=== PATIENT | male | born 1960 | race Caucasian/White ===

== ENCOUNTER 2017-05-16 12:27 | Inpatient (IN) | payer OTHER ==
[~2017-05-16] VITALS: Ht 175.3 cm; Wt 116.1 kg
[~2017-05-16 12:27] MED LIST: ACET325T96 PO; ASPI1TAB83 PO; ATOR-22 PO; B-COTAB18 PO; CHOL2000 PO; CRG625 PO; FBR PO; FLM4 PO; HYDC25 PO; LISI40TA PO; MISCCAP80 PO; MULT-506 PO; OXYC-57 PO; POTASSIUM PO; WARF2TAB8 PO
[2017-05-16] MEDS ORDERED: CARV6.252 PO (13:08)
[2017-05-16] MEDS ORDERED: LSN40 PO (13:08)
[2017-05-16] MEDS ORDERED: SULF400T7 PO (13:08)
[2017-05-16] MEDS ORDERED: ANS100 PO (13:08)
[2017-05-16] MEDS ORDERED: TAMS0.4C38 PO (13:08)
[2017-05-16] MEDS ORDERED: ATOR-54 PO (13:08)
[2017-05-16 13:11] LABS: MANUAL MICROSCOPIC REQUIRED? NO; REVIEW REQ? NO; URINE APPEARANCE CLEAR (CLEAR); URINE BILIRUBIN NEG (NEG); URINE COLOR YELLOW; URINE EPITHELIAL CELL AUTO 0-5 /lpf (0-5); URINE NITRITE NEG (NEG); URINE SPECIFIC GRAVITY 1.017 (1.000-1.030); UROBILINOGEN NEG (NEG); ZZUR CULT IF INDIC CLEAN CATCH NO
[2017-05-16] MEDS ORDERED: SODIUM CHLORIDE 0.9% 1000ML 1,000 ML IV STA (13:13)
[2017-05-16] MEDS ORDERED: ONDANSETRON INJ 2 MG/ML 2 ML VIAL IV STA (13:13)
[2017-05-16] MEDS ORDERED: MoRPHine SULFATE 10 MG/ML CARP/VIAL IV STA (13:13)
[2017-05-16 13:24] LABS: HEMATOCRIT 38.8 % (42-52); MEAN CELL VOLUME 87.4 fL (80-100); MEAN CORPUSCULAR HEMOGLOBIN 31.3 pg (25-34); MEAN CORPUSCULAR HGB CONC 35.8 g/dl (32-36); MEAN PLATELET VOLUME 9.8 fL (7.4-10.4); PLATELET COUNT 173 K/uL (130-400); RED BLOOD COUNT 4.44 M/uL (4.7-6.1); WHITE BLOOD COUNT 8.45 K/uL (4.8-10.8)
--- NOTE | 2017-05-16 13:30 | EMERGENCY ROOM VISIT NOTE ---
History First contact with patient: 13:02 Chief Complaint: URINARY SYMPTOMS Stated Complaint: PAIN, CANT PEE, CANT STOP PEEING Nursing Triage Summary: pt reports right flank pain started on may 06 went to pcp on may 10 told he has uti placed on antibiotic. pt having difficulty urinating, vomiting and nausea History of Present Illness The patient is a 57 year old male who presents to the Emergency Room with complaints of right flank and suprapubic pain with difficulty urinating that started approximately 10 days ago. Patient states he initially had very mild pain and was having urinary retention, he saw his PCP a week ago and was placed on Bactrim to treat for possible UTI. Patient states he has been taking this medication but has not really improved. He states his pain got much worse last night and today he has had some chills, nausea and vomiting. He also states at times that he feels increased urgency and does not always make it to the bathroom in time and has some incontinence. He has also noted some incontinence at night when he is sleeping. During the day he feels difficulty starting to urinate, and states "I have to push a lot before I start to pee." He also complains of a lot of bladder pressure. He does report a history of kidney stones in the past, he states this feels similar to him. He denies any headaches, itchiness or syncope, chest pain, shortness of breath, numbness or weakness of his extremities, saddle paresthesias, difficulties with his bowel movements, diarrhea or constipation, blood in the stool, hematuria. He denies any history of spine problems or surgeries. Review of Systems A complete 10 point review of systems was reviewed with the patient with pertinent positives and negatives as per history of present illness. All else were negative. Past Medical/Surgical History Medical Problems: (1) Dyslipidemia (2) HTN (hypertension) (3) Renal calculi Surgical Problems: (1) Status post total knee replacement, left (2) Status post total knee replacement, right Social History Problems: (1) Obstructive uropathy Family History No pertinent family history Social History Smoking Status: Never Smoker Marital Status: Housing Status: lives with significant other Current/Historical Medications Scheduled Atorvastatin (Lipitor), 1 TAB PO DAILY Carvedilol (Coreg), 1 TAB PO BID Hydrochlorothiazide (Hctz), 1 CAP PO DAILY Lisinopril (Lisinopril), 40 MG PO DAILY Sulfamethoxazole-Trimethoprim (Bactrim 400MG/80MG), 1 TAB PO BID Tamsulosin Hcl (Flomax), 0.4 MG PO DAILY Scheduled PRN Flurbiprofen (Flurbiprofen), 100 MG PO BID PRN for Pain Allergies No known allergies no known allergies Physical Exam Vital Signs Date Time Temp Pulse Resp B/P (MAP) Pulse Ox O2 Delivery O2 Flow Rate FiO2 05/16/17 15:15 69 05/16/17 15:08 70 159/72 Room Air 05/16/17 14:03 82 22 192/116 99 05/16/17 13:50 193/129 05/16/17 13:41 169/106 05/16/17 12:32 36.6 75 18 200/125 97 Room Air Physical Exam CONSTITUTIONAL: No acute distress. Well appearing and well nourished. Alert and oriented X 4 with normal affect. HEENT: Normocephalic, atraumatic. Pupils equal, round and reactive to light, EOMI. TMs normal. Pharynx normal. NECK: Supple, full active range of motion without discomfort. RESPIRATORY: Clear to auscultation bilaterally with no wheezing, crackles, rhonchi or stridor. Equal expansion bilaterally. CARDIOVASCULAR: Regular rate and rhythm with no murmurs, rubs or gallops. Normal peripheral perfusion. No edema. GASTROINTESTINAL: Tender in the suprapubic and right flank. No rebound tenderness or guarding. No palpable masses or HSM. No CVA tenderness. Abdomen is otherwise soft, nontender, nondistended. Bowel sounds present in all quadrants. MUSCULOSKELETAL: Full range of motion of all joints without discomfort. INTEGUMENTARY: No rash or other significant dermatologic conditions noted. NEUROLOGIC: Cranial nerves II-XII grossly intact. No focal neurologic deficits noted. Normal strength and sensation in all 4 extremities, normal gait observed , normal speech, 2+ DTRs bilaterally patellar and Achilles. Medical Decision & Procedures ER Provider Diagnostic Interpretation: CT OF THE ABDOMEN AND PELVIS WITHOUT CONTRAST CLINICAL HISTORY: Right flank pain. Bladder pressure. Evaluate for stone. COMPARISON STUDY: CT of the abdomen and pelvis December 06, 2010 and KUB April 20, 2011. TECHNIQUE: Axial images of the abdomen and pelvis were obtained without IV contrast. Images were reviewed in the axial, sagittal, and coronal planes. A dose lowering technique was utilized adhering to the principles of ALA. FINDINGS: There is mild bilateral hydroureteronephrosis with mild bilateral perinephric and periureteral ureteral infiltration as well as mild infiltration adjacent to the bladder. The bladder is moderately distended despite an indwelling Copeland catheter. The prostate is moderately enlarged. There are multiple apparent nodular plaque-like abnormalities along the dome of the bladder that measure approximately 1.4 cm. No calcified bladder calculi are present. There are no urinary calculi Evaluation of the remainder of the abdomen and pelvis is suboptimal on this unenhanced exam. The liver, spleen, adrenal glands and pancreas are unremarkable. There is no biliary or pancreatic ductal dilatation. There is extensive colonic diverticulosis without evidence for acute diverticulitis. Mild infiltration within the pelvis is likely related to the urinary obstruction. The appendix is normal. There is no lymphadenopathy. There are no suspicious osseous lesions. There is no pneumatosis, free air or portal venous gas. IMPRESSION: 1. Mild to moderate bilateral hydroureteronephrosis, potentially on the basis of bladder outlet obstruction. Moderate distention of the bladder despite Copeland catheter in place within the bladder lumen. No urinary calculi. Moderate enlargement of the prostate gland. 2. Multiple nodular plaque-like abnormalities along the dome of the bladder. These are indeterminate however urothelial lesions are favored. Blood clot or noncalcified stones are considered less likely. Urology consultation for consideration for cystoscopy is recommended given the potential for malignancy. Laboratory Results 05/16/17 12:49 Test 05/16/17 12:49 Red Blood Count 4.44 M/uL (4.7-6.1) Mean Corpuscular Volume 87.4 fL (80-100) Mean Corpuscular Hemoglobin 31.3 pg (25-34) Mean Corpuscular Hemoglobin Concent 35.8 g/dl (32-36) RDW Standard Deviation 40.8 fL (36.4-46.3) RDW Coefficient of Variation 12.6 % (11.5-14.5) Mean Platelet Volume 9.8 fL (7.4-10.4) Prothrombin Time 10.7 SECONDS (9.0-12.0) Prothromb Time International Ratio 1.0 (0.9-1.1) Urine WBC (Auto) 1-5 /hpf (0-5) Urine RBC (Auto) 0-4 /hpf (0-4) Urine Hyaline Casts (Auto) 1-5 /lpf (0-5) Urine Epithelial Cells (Auto) 0-5 /lpf (0-5) Urine Bacteria (Auto) NEG (NEG) Medications Administered Medications (Trade) Dose Ordered Sig/Sana Route Start Time Stop Time Status Last Admin Dose Admin Sodium Chloride 1,000 ml @ 999 mls/hr Q1H1M STAT IV 05/16/17 13:13 05/16/17 14:13 DC 05/16/17 13:59 999 MLS/HR Ondansetron HCl (Zofran Inj) 4 mg NOW STAT IV 05/16/17 13:13 05/16/17 13:15 DC 05/16/17 13:59 4 MG Morphine Sulfate (MoRPHine SULFATE INJ) 2 mg STK-MED ONCE .ROUTE 05/16/17 13:55 05/16/17 13:56 DC 05/16/17 14:00 2 MG Morphine Sulfate (MoRPHine SULFATE INJ) 4 mg STK-MED ONCE .ROUTE 05/16/17 13:55 05/16/17 13:56 DC 05/16/17 13:59 4 MG Medical Decision CC: Patient presenting with complaint of suprapubic pain and low back/flank pain Interpretation of Labs: No leukocytosis, mild anemia, no significant electrolyte abnormalities, acute kidney injury (appears to be post renal, renal function has been normal on comparison of previous labs). Coagulation factors within normal limits. UA negative for infection. Differential Diagnosis: Includes, but not limited to UTI, pyelonephritis, renal colic, obstructing stone, acute kidney injury, urinary retention, AAA, aortic dissection, cauda equina syndrome, among others. Medication Reconciliation: I attest that I have personally reviewed the patient' s current medication list. Vital signs review: I reviewed the patient's vital signs and interpret them as follows: T: Afebrile; BP: Hypertensive; HR: Within normal limits; RR: Within normal limits; Pulse Ox: Within normal limits on room air. Blood pressure screening: The patient was found to have an elevated blood pressure and was referred to their primary doctor for recheck and further treatment. Summary: Patient was evaluated at bedside, history and physical exam performed. Patient alert and oriented, no acute distress but appears uncomfortable, resting calmly in the stretcher. Patient has discomfort in the suprapubic area and of the right flank. No significant tenderness noted to the abdomen. Bladder scan showing more than 1100 mL in the bladder. Copeland catheter was ordered. Orders were placed at bedside for labs, UA and culture, IV fluids, morphine for pain, CT abdomen and pelvis without contrast to evaluate for obstructing stone. Patient discussed with Dr. Geiger, who agrees with my assessment and plan. Labs reviewed as above, notable for acute kidney injury when compared to previous renal function. CT abdomen/pelvis concerning for bilateral moderate hydronephrosis and distention of the bladder as well as lesions within the bladder concerning for possible malignancy. Spoke with KERI Crowley with the hospitalist service, who agrees to admit patient. She will consult urology for their assistance in management. Patient reassessed multiple times throughout ED stay, he feels much better after placement of Copeland. Per nursing staff, he has drained over 2800 mL from his bladder thus far. His hypertension has greatly improved after placement of Copeland and draping of the urine. I updated the patient on results and plan for admission, he verbalized understanding and was agreeable to this plan. Patient was stable at time of admission. Head Trauma GCS Score: 15 Medication Reconcilliation Current Medication List: was personally reviewed by me Blood Pressure Screening Patient's blood pressure: Elevated blood pressure Impression Primary Impression: THERESA (acute kidney injury) Additional Impression: Acute urinary retention Departure Information Dispostion Admitted as an inpatient Condition FAIR Referrals Thai Gillis M.D. (PCP) Patient Instructions [facility] Problem Qualifiers
[2017-05-16 13:43] LABS: BUN/CREATININE RATIO 11.7 (10-20); CREATININE 2.87 mg/dl (0.60-1.40); POTASSIUM 3.9 mmol/L (3.5-5.1)
[2017-05-16] MEDS ORDERED: MoRPHine SULFATE 4 MG/ML 1 ML CARP\\VIAL ONE (13:55)
[2017-05-16] MEDS ORDERED: MoRPHine SULFATE 2 MG/ML CARP ONE (13:55)
--- NOTE | 2017-05-16 15:00 | DIAGNOSTIC IMAGING REPORT ---
CT OF THE ABDOMEN AND PELVIS WITHOUT CONTRAST CLINICAL HISTORY: Right flank pain. Bladder pressure. Evaluate for stone. COMPARISON STUDY: CT of the abdomen and pelvis December 06, 2010 and KUB April 20, 2011. TECHNIQUE: Axial images of the abdomen and pelvis were obtained without IV contrast. Images were reviewed in the axial, sagittal, and coronal planes. A dose lowering technique was utilized adhering to the principles of ALARA. FINDINGS: There is mild bilateral hydroureteronephrosis with mild bilateral perinephric and periureteral ureteral infiltration as well as mild infiltration adjacent to the bladder. The bladder is moderately distended despite an indwelling Copeland catheter. The prostate is moderately enlarged. There are multiple apparent nodular plaque-like abnormalities along the dome of the bladder that measure approximately 1.4 cm. No calcified bladder calculi are present. There are no urinary calculi Evaluation of the remainder of the abdomen and pelvis is suboptimal on this unenhanced exam. The liver, spleen, adrenal glands and pancreas are unremarkable. There is no biliary or pancreatic ductal dilatation. There is extensive colonic diverticulosis without evidence for acute diverticulitis. Mild infiltration within the pelvis is likely related to the urinary obstruction. The appendix is normal. There is no lymphadenopathy. There are no suspicious osseous lesions. There is no pneumatosis, free air or portal venous gas. IMPRESSION: 1. Mild to moderate bilateral hydroureteronephrosis, potentially on the basis of bladder outlet obstruction. Moderate distention of the bladder despite Copeland catheter in place within the bladder lumen. No urinary calculi. Moderate enlargement of the prostate gland. 2. Multiple nodular plaque-like abnormalities along the dome of the bladder. These are indeterminate however urothelial lesions are favored. Blood clot or noncalcified stones are considered less likely. Urology consultation for consideration for cystoscopy is recommended given the potential for malignancy. Electronically signed by: Brandon Gan M.D. 05/16/2017 2:59 PM Dictated Date/Time: 05/16/2017 2:47 PM
[2017-05-16] MEDS ORDERED: ONDANSETRON INJ 2 MG/ML 2 ML VIAL IV PRN (16:45)
[2017-05-16] MEDS ORDERED: HYDR12.56 PO (16:48)
[2017-05-16 18:15] VITALS: BP 182/94; PULSE 66; TEMP 37; O2SAT 96; Ht 175.3 cm; Wt 116.1 kg
--- NOTE | 2017-05-16 19:40 | History and Physical ---
History & Physical Date & Time of Service: May 16, 2017 ~ 16:00 Chief Complaint: Difficulty Urinating Primary Care Physician: Thai Gillis M.D. History of Present Illness 57 year old male who presents to the ED with difficulty urinating. Patient reports his symptoms began about two weeks ago. He was seen by his PCP on 05/11 and was diagnosed with a UTI and given a prescription for Bactrim. Patient reports no improvement in his symptoms. He reports minimal urine output and increasing suprapubic pain. His urine has been very dark in color. He reports some occasional right sided low back pain. He denies fever and chills. He has had some intermittent nausea and today he had one episode of emesis. He denies hematemesis or coffee ground emesis. No abdominal pain or diarrhea. He denies chest pain and shortness of breath. No lightheadedness or dizziness. In the ED, patient was found to have significant urinary retention. Ma was placed and drained ~ 2600cc immediately. Creat is found to be 2.8 (normal baseline). CT scan shows BL hydroureteronephrosis and moderately enlarged prostate. There are also bladder lesions concerning for malignancy. BP was elevated on arrival however has been improving since ma was placed. Past Medical/Surgical History Medical Problems: (1) Dyslipidemia Status: Chronic (2) HTN (hypertension) Status: Chronic (3) Renal calculi Status: Chronic Surgical Problems: (1) Status post total knee replacement, left Status: Chronic (2) Status post total knee replacement, right Status: Chronic Family History FH: sudden FATHER Patient's mother is MOTHER, , Age:96 Social History Smoking Status: Former Smoker Alcohol Use: occasionally Immunizations History of Influenza Vaccine: Yes Influenza Vaccine Date: May 11, 2017 History of Tetanus Vaccine?: Yes Tetanus Immunization Date: Jan 08, 2008 Multi-Drug Resistant Organisms History of MDRO: No Allergies Coded Allergies: No Known Allergies (Unverified , 08/31/14) Home Medications Scheduled Atorvastatin (Lipitor), 1 TAB PO DAILY Carvedilol (Coreg), 1 TAB PO BID Hydrochlorothiazide (Hctz), 1 CAP PO DAILY Lisinopril (Lisinopril), 40 MG PO DAILY Sulfamethoxazole-Trimethoprim (Bactrim 400MG/80MG), 1 TAB PO BID Tamsulosin Hcl (Flomax), 0.4 MG PO DAILY Scheduled PRN Flurbiprofen (Flurbiprofen), 100 MG PO BID PRN for Pain Review of Systems ROS per HPI, all other systems reviewed and negative Physical Exam Vital Signs Date Time Temp Pulse Resp B/P (MAP) Pulse Ox O2 Delivery O2 Flow Rate FiO2 05/16/17 17:14 62 17 166/101 96 Room Air 05/16/17 15:15 69 05/16/17 15:08 70 159/72 Room Air 05/16/17 14:03 82 22 192/116 99 05/16/17 13:50 193/129 05/16/17 13:41 169/106 05/16/17 12:32 36.6 75 18 200/125 97 Room Air General Appearance: WD/WN, no apparent distress Head: normocephalic, atraumatic Eyes: normal inspection, EOMI, sclerae normal ENT: hearing grossly normal, + pertinent finding (mucous membranes moist) Neck: supple, no JVD, trachea midline Respiratory/Chest: lungs clear, normal breath sounds, no respiratory distress Cardiovascular: regular rate, rhythm, no edema, normal peripheral pulses Abdomen/GI: normal bowel sounds, soft, no organomegaly, + tenderness (mild suprapubic) Genitourinary - Male: + pertinent finding (ma in place draining bloody urine ) Extremities/Musculoskelatal: normal inspection, no calf tenderness, normal capillary refill Neurologic/Psych: no motor/sensory deficits, alert, normal mood/affect, oriented x 3 Skin: normal color, warm/dry Diagnostics Laboratory Results Results Past 24 Hours Test 05/16/17 12:49 05/16/17 18:57 Range/Units White Blood Count 8.45 4.8-10.8 K/uL Red Blood Count 4.44 4.7-6.1 M/uL Hemoglobin 13.9 14.0-18.0 g/dL Hematocrit 38.8 42-52 % Mean Corpuscular Volume 87.4 80-100 fL Mean Corpuscular Hemoglobin 31.3 25-34 pg Mean Corpuscular Hemoglobin Concent 35.8 32-36 g/dl RDW Standard Deviation 40.8 36.4-46.3 fL RDW Coefficient of Variation 12.6 11.5-14.5 % Platelet Count 173 130-400 K/uL Mean Platelet Volume 9.8 7.4-10.4 fL Urine Color YELLOW Urine Appearance CLEAR CLEAR Urine pH 5.0 4.5-7.5 Urine Specific Robinson 1.017 1.000-1.030 Urine Protein NEG NEG Urine Glucose (UA) NEG NEG Urine Ketones NEG NEG Urine Occult Blood NEG NEG Urine Nitrite NEG NEG Urine Bilirubin NEG NEG Urine Urobilinogen NEG NEG Urine Leukocyte Esterase NEG NEG Urine WBC (Auto) 1-5 0-5 /hpf Urine RBC (Auto) 0-4 0-4 /hpf Urine Hyaline Casts (Auto) 1-5 0-5 /lpf Urine Epithelial Cells (Auto) 0-5 0-5 /lpf Urine Bacteria (Auto) NEG NEG Sodium Level 143 136-145 mmol/L Potassium Level 3.9 3.5-5.1 mmol/L Chloride Level 109 98-107 mmol/L Carbon Dioxide Level 24 21-32 mmol/L Anion Gap 10.0 3-11 mmol/L Blood Urea Nitrogen 34 7-18 mg/dl Creatinine 2.87 0.60-1.40 mg/dl Est Creatinine Clear Calc Drug Dose 35.3 ml/min Estimated GFR () 26.8 Estimated GFR (Non- 23.1 BUN/Creatinine Ratio 11.7 10-20 Random Glucose 93 70-99 mg/dl Calcium Level 9.0 8.5-10.1 mg/dl Diagnostic Radiology CT ABD/PELVIS IMPRESSION: 1. Mild to moderate bilateral hydroureteronephrosis, potentially on the basis of bladder outlet obstruction. Moderate distention of the bladder despite Ma catheter in place within the bladder lumen. No urinary calculi. Moderate enlargement of the prostate gland. 2. Multiple nodular plaque-like abnormalities along the dome of the bladder. These are indeterminate however urothelial lesions are favored. Blood clot or noncalcified stones are considered less likely. Urology consultation for consideration for cystoscopy is recommended given the potential for malignancy. Impression Assessment and Plan OBSTRUCTIVE UROPATHY - admit to med/surg - patient presenting with 2 weeks of difficulty urinating; in the ED found to have urinary retention, ma was placed and drained ~ 2600cc - CT scan shows BL hydroureteronephrosis, moderately enlarged prostate, and bladder lesions concerning for malignancy - creat 2.8; renal functions should improve with relief of obstruction - continue ma - monitor for post obtrutive diuresis - will place on 0.45NSS @ 100ml/hr - urology consult, case discussed with KERI Tong THERESA-post obstructive in conjunction with Bactrim use. Ma in place. Held lis and HCTZ. No flubiprofen or other NSAIDs. Cont IVF overnight. HTN - BP hypertensive on arrival - likely due to pain - BP improving since ma has been placed - continue carvedilol - holding HCTZ and lisinopril due to THERESA DYSLIPIDEMIA - continue statin DVT PROPHYLAXIS - SCDs due to hematuria DISPO - In my clinical judgment this beneficiary meets acute admission criteria, established by [facility], that includes being hospitalized through two midnights. ADDENDUM: I have seen and examined the patient and agree with the assessment and plan as above. Jamie, DO Level of Care Med/Surg Resuscitation Status FULL RESUSCITATION VTE Prophylaxis VTE Risk Assessment Done? Y/N: Yes Risk Level: Moderate Given or contraindicated: SCD's
[2017-05-16 19:41] LABS: BUN/CREATININE RATIO 11.9 (10-20); CALCIUM 8.9 mg/dl (8.5-10.1); CREATININE 1.95 mg/dl (0.60-1.40); POTASSIUM 4.1 mmol/L (3.5-5.1)
[2017-05-16] MEDS: SODIUM CHLORIDE 0.45% 1000ML 1,000 ML IV SCH (20:08)
[2017-05-16] MEDS: CARVEDILOL 6.25 MG TAB PO SCH (20:09)
[2017-05-16 21:16] LABS: MANUAL MICROSCOPIC REQUIRED? YES; URINE APPEARANCE TURBID (CLEAR); URINE BILIRUBIN NEG (NEG); URINE COLOR RED; URINE NITRITE NEG (NEG); UROBILINOGEN NEG (NEG)
[2017-05-16 21:19] LABS: REVIEW REQ? NO
[2017-05-16 21:20] LABS: URINE BACTERIA 1+ (NEG); URINE RBC >30 /hpf (0-4)
[2017-05-16 22:52] VITALS: BP 137/82; PULSE 66; TEMP 37.4; O2SAT 95
[2017-05-16 23:46] LABS: PROTHROMBIN TIME (PATIENT) 10.7 SECONDS (9.0-12.0)
[2017-05-17] MEDS: SODIUM CHLORIDE 0.45% 1000ML 1,000 ML IV SCH ×2 (05:31→18:46)
[2017-05-17] MEDS: ACETAMINOPHEN 325 MG TAB PO PRN (05:36)
[2017-05-17 07:06] VITALS: BP 172/105; PULSE 77; TEMP 37; O2SAT 96
[2017-05-17 08:21] LABS: HEMATOCRIT 39.8 % (42-52); MEAN CELL VOLUME 88.8 fL (80-100); MEAN CORPUSCULAR HEMOGLOBIN 30.1 pg (25-34); MEAN CORPUSCULAR HGB CONC 33.9 g/dl (32-36); MEAN PLATELET VOLUME 9.7 fL (7.4-10.4); PLATELET COUNT 177 K/uL (130-400); RED BLOOD COUNT 4.48 M/uL (4.7-6.1); WHITE BLOOD COUNT 8.44 K/uL (4.8-10.8)
[2017-05-17] MEDS: CARVEDILOL 6.25 MG TAB PO SCH ×2 (08:32→21:05)
[2017-05-17] MEDS: TAMSULOSIN HCL 0.4 MG CAP PO SCH ×2 (08:32→21:05)
[2017-05-17] MEDS: ATORVASTATIN 20 MG TAB PO SCH (08:33)
--- NOTE | 2017-05-17 08:41 | Urology Consultation ---
History General Date of Service: May 17, 2017. Chief Complaint: urinary retention, gross hematuria Primary Care Physician: Thai Gillsi M.D. Pt seen a urologist before?: Yes (last seen 6 years ago) If yes, why?: nephrolithiasis History of Present Illness 57 yo male presents to [facility] with c/o worsening difficulty voiding since . He reports occasional hesitancy prior to that. He reports his PCP placed him on Flomax 6 years ago. He has previously seen a urologist ~6 years ago for nephrolithiasis. No issues since. Ma catheter was placed in the ED with ~2600ml urine return. Ma now draining zapata colored urine with old clot. The pt was also noted to be in ARF with a Cr of 2.87 on admission. Improved to 1.95 after ma placement. Pending this AM. CT scan on admission showing bilateral hydro with a distended bladder with ma in place as well as ? bladder lesions at the dome vs clot. No stones visualized. The pt denies a previous hx of gross hematuria. He has not smoked since he was a teenager. Denies a family hx of prostate cancer. He is uncertain if he has ever had a PSA checked. Imaging Imaging: CT Laboratory Last 24 Hours Test 05/16/17 12:49 05/16/17 18:57 05/16/17 21:00 05/17/17 08:03 White Blood Count 8.45 K/uL 8.44 K/uL Red Blood Count 4.44 M/uL 4.48 M/uL Hemoglobin 13.9 g/dL 13.5 g/dL Hematocrit 38.8 % 39.8 % Mean Corpuscular Volume 87.4 fL 88.8 fL Mean Corpuscular Hemoglobin 31.3 pg 30.1 pg Mean Corpuscular Hemoglobin Concent 35.8 g/dl 33.9 g/dl RDW Standard Deviation 40.8 fL 41.5 fL RDW Coefficient of Variation 12.6 % 12.8 % Platelet Count 173 K/uL 177 K/uL Mean Platelet Volume 9.8 fL 9.7 fL Prothrombin Time 10.7 SECONDS Prothromb Time International Ratio 1.0 Urine Color YELLOW RED Urine Appearance CLEAR TURBID Urine pH 5.0 6.0 Urine Specific [place] 1.017 1.020 Urine Protein NEG 3+ Urine Glucose (UA) NEG NEG Urine Ketones NEG NEG Urine Occult Blood NEG 3+ Urine Nitrite NEG NEG Urine Bilirubin NEG NEG Urine Urobilinogen NEG NEG Urine Leukocyte Esterase NEG TRACE Urine WBC (Auto) 1-5 /hpf Urine RBC (Auto) 0-4 /hpf Urine Hyaline Casts (Auto) 1-5 /lpf Urine Epithelial Cells (Auto) 0-5 /lpf Urine Bacteria (Auto) NEG Sodium Level 143 mmol/L 141 mmol/L Potassium Level 3.9 mmol/L 4.1 mmol/L Chloride Level 109 mmol/L 111 mmol/L Carbon Dioxide Level 24 mmol/L 28 mmol/L Anion Gap 10.0 mmol/L 2.0 mmol/L Blood Urea Nitrogen 34 mg/dl 23 mg/dl Creatinine 2.87 mg/dl 1.95 mg/dl Est Creatinine Clear Calc Drug Dose 35.3 ml/min 51.9 ml/min Estimated GFR () 26.8 42.7 Estimated GFR (Non- 23.1 36.8 BUN/Creatinine Ratio 11.7 11.9 Random Glucose 93 mg/dl 83 mg/dl Calcium Level 9.0 mg/dl 8.9 mg/dl Urine RBC >30 /hpf Urine WBC 10-30 /hpf Urine Epithelial Cells 10-20 /lpf Urine Bacteria 1+ Problem List Social History Problems: (1) Acute urinary retention Status: Acute (2) THERESA (acute kidney injury) Status: Acute (3) Anemia Status: Acute (4) Blister Status: Acute (5) Bruising Status: Acute (6) Postoperative pain Status: Acute (7) Right knee DJD Status: Acute Past History high cholesterol, hypertension, kidney stones Past Surgical History: TKR (bilateral) Family History FH: sudden FATHER Patient's mother is MOTHER, , Age:96 Social History Hx Tobacco Use In Past Year?: No Smoking: other (former smoker as a teenager) Alcohol: occasional Marital status: Housing status: lives with significant other Immunizations History of Influenza Vaccine: Yes Influenza Vaccine Date: May 11, 2017 History of Tetanus Vaccine?: Yes Tetanus Immunization Date: Jan 08, 2008 History of MDRO No Allergies Coded Allergies: No Known Allergies (Unverified , 08/31/14) Medications Home Medications: Home Meds and Scripts Medications Dose Route/Sig Max Daily Dose Days Date Category Hctz (Hydrochlorothiazide) 12.5 Mg Cap 1 Cap PO DAILY 30 05/16/17 Reported Lipitor (Atorvastatin) 20 Mg Tab 1 Tab PO DAILY 90 05/16/17 Reported Flomax (Tamsulosin Hcl) 0.4 Mg Cap 0.4 Mg PO DAILY 05/16/17 Reported Flurbiprofen 100 Mg Tab 100 Mg PO BID PRN 05/16/17 Reported Lisinopril 40 Mg Tab 40 Mg PO DAILY 05/16/17 Reported Coreg (Carvedilol) 6.25 Mg Tab 1 Tab PO BID 90 05/16/17 Reported Bactrim 400MG/80MG (Sulfamethoxazole-Trimethoprim) 1 Tab Tab 1 Tab PO BID 10 05/16/17 Reported Inpatient Medications: Current Inpatient Medications Medications (Trade) Dose Ordered Sig/Sana Route Start Time Stop Time Status Last Admin Dose Admin Acetaminophen (Tylenol Tab) 650 mg Q4H PRN PO 05/16/17 16:45 06/15/17 16:44 05/17/17 05:36 650 MG Ondansetron HCl (Zofran Inj) 4 mg Q6H PRN IV 05/16/17 16:45 06/15/17 16:44 Sodium Chloride 1,000 ml @ 100 mls/hr Q10H IV 05/16/17 19:00 05/17/17 14:59 05/17/17 05:31 100 MLS/HR Atorvastatin Calcium (Lipitor Tab) 20 mg DAILY PO 05/17/17 09:00 06/16/17 08:59 Carvedilol (Coreg Tab) 6.25 mg BID PO 05/16/17 21:00 06/15/17 20:59 05/16/17 20:09 6.25 MG Tamsulosin HCl (Flomax Cap) 0.4 mg BID PO 05/17/17 09:00 06/16/17 08:59 UNV Finasteride (Proscar Tab) 5 mg QAM PO 05/17/17 09:00 06/16/17 08:59 UNV Review of Systems Review of Systems Constitutional: No fever, No chills Eyes: No double vision Neurological: No dizzy Endocrine: No excessive thirst Gastrointestinal: No abdominal pain, No nausea, No vomiting Cardiovascular: No chest pain Respiratory: No shortness of breath Skin: No rash Musculoskeletal: No back pain Male : + urinary retention, + blood in urine Physical Exam Vital Signs: Vital Signs Past 12 Hours Date Time Temp Pulse Resp B/P (MAP) Pulse Ox O2 Delivery O2 Flow Rate FiO2 05/17/17 07:06 37.0 77 18 172/105 (127) 96 Room Air 05/16/17 23:45 Room Air 05/16/17 22:52 37.4 66 16 137/82 (100) 95 Room Air Physical Exam: General Appearance: no apparent distress Eyes: bilateral eyes normal inspection ENT: hearing grossly normal Neck: no JVD Respiratory/Chest: no respiratory distress, no accessory muscle use Cardiovascular: no JVD Genitourinary - Male: Prostate: pertinent finding (large, irregular prostate without definitive nodule on exam ) Extremities: normal inspection Neurologic/Psychiatric: alert, normal mood/affect, oriented x 3 Skin: normal color Assessment & Plan Assessment & Plan A/P: Urinary retention, bilateral hydro, BPH, gross hematuria, ARF, hx of nephrolithiasis Pt's UR and bilateral hydro most likely secondary to his BPH. Noted to have a large irregular prostate without definitive nodule on exam this morning. Will increase his Flomax to BID and add finasteride. Will avoid checking a PSA in the setting of UR as it is likely to be falsely elevated, but will eventually need to check as an outpatient. Plan to leave ma catheter in place for 10-14 days to allow the bladder to rest. Can recheck a renal u/s in 1 week to ensure hydro has improved with ma in place. Suspect his gross hematuria is r/t ma trauma. UC&S pending. Will check a cytology. No stones visualized on CT. ? bladder lesions vs clot. Will eventually need outpatient cysto for further evaluation. Will plan to leave current ma in place and have nursing hand irrigate qshift for now. If bleeding worsens, will need to place a 20-22Fr 3-way ma and initiate CBI. H&H stable. Continue to monitor. Supportive management with transfusions PRN. ARF improving with ma in place. Suspect this will continue to improve over the next few days. Thanks for the consult. Will continue to follow along with primary service.
[2017-05-17 08:54] LABS: BUN/CREATININE RATIO 12.4 (10-20); CREATININE 1.39 mg/dl (0.60-1.40); POTASSIUM 4.1 mmol/L (3.5-5.1)
[2017-05-17] MEDS ORDERED: TAMSULOSIN HCL 0.4 MG CAP PO SCH (09:00)
[2017-05-17] MEDS: FINASTERIDE 5 MG TAB PO SCH (09:42)
--- NOTE | 2017-05-17 14:22 | Progress Note ---
Medicine Progress Note Date & Time of Visit: May 17, 2017 at 14:10 . Subjective Presented to ED yesterday with difficulty voiding and lower abdominal discomfort. Copeland catheter inserted with immediate drainage of 2600 mls. Feels better today. Less suprapubic discomfort. No fever. No chest pain. No cough or SOB. No nausea, vomiting, diarrhea. . Objective Last 8 Hrs Date Time Temp Pulse Resp B/P (MAP) Pulse Ox O2 Delivery O2 Flow Rate FiO2 05/17/17 07:15 Room Air 05/17/17 07:06 37.0 77 18 172/105 (127) 96 Room Air Physical Exam: General- lying in bed, no distress Neck- no JVD Lungs- clear to auscultation; no respiratory distress Heart- RRR, no murmur or gallop Abdomen- + BS, soft, mild suprapubic tenderness - Copeland cath draining grossly bloody urine with small clots Extremities- no pretibial edema or calf tenderness; no cyanosis or clubbing Neuro- alert . Laboratory Results: Last 24 Hours Test 05/16/17 18:57 05/16/17 21:00 05/17/17 08:03 Sodium Level 141 mmol/L 141 mmol/L Potassium Level 4.1 mmol/L 4.1 mmol/L Chloride Level 111 mmol/L 107 mmol/L Carbon Dioxide Level 28 mmol/L 27 mmol/L Anion Gap 2.0 mmol/L 7.0 mmol/L Blood Urea Nitrogen 23 mg/dl 17 mg/dl Creatinine 1.95 mg/dl 1.39 mg/dl Est Creatinine Clear Calc Drug Dose 51.9 ml/min 72.8 ml/min Estimated GFR () 42.7 64.3 Estimated GFR (Non- 36.8 55.5 BUN/Creatinine Ratio 11.9 12.4 Random Glucose 83 mg/dl 88 mg/dl Calcium Level 8.9 mg/dl 9.0 mg/dl Urine Color RED Urine Appearance TURBID Urine pH 6.0 Urine Specific Tyro 1.020 Urine Protein 3+ Urine Glucose (UA) NEG Urine Ketones NEG Urine Occult Blood 3+ Urine Nitrite NEG Urine Bilirubin NEG Urine Urobilinogen NEG Urine Leukocyte Esterase TRACE Urine RBC >30 /hpf Urine WBC 10-30 /hpf Urine Epithelial Cells 10-20 /lpf Urine Bacteria 1+ White Blood Count 8.44 K/uL Red Blood Count 4.48 M/uL Hemoglobin 13.5 g/dL Hematocrit 39.8 % Mean Corpuscular Volume 88.8 fL Mean Corpuscular Hemoglobin 30.1 pg Mean Corpuscular Hemoglobin Concent 33.9 g/dl RDW Standard Deviation 41.5 fL RDW Coefficient of Variation 12.8 % Platelet Count 177 K/uL Mean Platelet Volume 9.7 fL Hepatitis C Antibody Screen NEG Date/Time Source Procedure Growth Status 05/16/17 21:00 Urine , Clean Catch Urine Culture - Preliminary NO GROWTH - LESS THAN 1,000 COLONIES/... Resulted Assessment & Plan URINARY RETENTION Presented with difficulty voiding and suprapubic discomfort. Copeland cath placed in ED with immediate drainage of [address] demonstrated bilateral hydronephrosis. Urology consulted. Continue Copeland cath. Eventual outpatient cystoscopy anticipated. ACUTE KIDNEY INJURY Serum creatinine 2.87 at time of admission. Obstructive uropathy secondary to urinary retention. Postobstructive diuresis (7700 ml yesterday). Receiving IV fluids. Serum creatinine today = 1.39. Follow. HEMATURIA Probably secondary to Copeland insertion. Urine cytology ordered. Eventual outpatient cystoscopy anticipated. HYPERTENSION Episodic BP elevations due to discomfort from urinary retention. HCTZ and lisinopril on hold due to THERESA. Continue carvedilol. VTE PROPHYLAXIS No anticoagulants due to gross hematuria. SCD's. Ambulate. DISPOSITION Expected discharge to home. Family Medicine follow-up with Dr. Gillis. Urology follow-up with [facility]. . Current Inpatient Medications: Current Inpatient Medications Medications (Trade) Dose Ordered Sig/Sana Route Start Time Stop Time Status Last Admin Dose Admin Acetaminophen (Tylenol Tab) 650 mg Q4H PRN PO 05/16/17 16:45 06/15/17 16:44 05/17/17 05:36 650 MG Ondansetron HCl (Zofran Inj) 4 mg Q6H PRN IV 05/16/17 16:45 06/15/17 16:44 Sodium Chloride 1,000 ml @ 100 mls/hr Q10H IV 05/16/17 19:00 05/17/17 14:59 05/17/17 05:31 100 MLS/HR Atorvastatin Calcium (Lipitor Tab) 20 mg DAILY PO 05/17/17 09:00 06/16/17 08:59 05/17/17 08:33 20 MG Carvedilol (Coreg Tab) 6.25 mg BID PO 05/16/17 21:00 06/15/17 20:59 05/17/17 08:32 6.25 MG Tamsulosin HCl (Flomax Cap) 0.4 mg BID PO 05/17/17 09:00 06/16/17 08:59 05/17/17 08:32 0.4 MG Finasteride (Proscar Tab) 5 mg QAM PO 05/17/17 09:00 06/16/17 08:59 05/17/17 09:42 5 MG
[2017-05-17 15:29] VITALS: BP 158/99; PULSE 71; TEMP 37.5; O2SAT 95
[2017-05-17] MEDS ORDERED: AMLODIPINE BESYLATE 5 MG TAB PO ONE (20:00)
[2017-05-17 20:24] LABS: BUN/CREATININE RATIO 11.4 (10-20); CALCIUM 8.6 mg/dl (8.5-10.1); CREATININE 1.68 mg/dl (0.60-1.40); POTASSIUM 3.8 mmol/L (3.5-5.1)
[2017-05-17 23:22] VITALS: BP 121/84; PULSE 77; TEMP 37.2; O2SAT 94
[2017-05-18] VITALS (8 sets, daily range): BP systolic 118–176; BP diastolic 70–107; PULSE 66–85; TEMP 36.9–37.1; O2SAT 94
[2017-05-18] MEDS: SODIUM CHLORIDE 0.45% 1000ML 1,000 ML IV SCH ×3 (00:43→10:46)
[2017-05-18] MEDS: ACETAMINOPHEN 325 MG TAB PO PRN (05:14)
[2017-05-18 08:22] LABS: BUN/CREATININE RATIO 13.5 (10-20); CALCIUM 8.5 mg/dl (8.5-10.1); CREATININE 1.07 mg/dl (0.60-1.40); POTASSIUM 3.8 mmol/L (3.5-5.1)
--- NOTE | 2017-05-18 09:12 | Progress Note ---
Subjective Date of Service: May 18, 2017. Subjective Pt evaluation today including: conversation w/ patient, chart review, lab review Voiding: ma catheter in place (patent, draining dark zapata colored urine with some small clot) 57 yo male with UR, ARF, bilateral hydro, and BPH. Ma draining dark zapata colored urine with some small clot this morning. Pt denies pain. Cr has normalized at 1.07. Flomax has been increased to BID and he has been started on finasteride. Problem List Social History Problems: (1) Acute urinary retention Status: Acute (2) THERESA (acute kidney injury) Status: Acute (3) Anemia Status: Acute (4) Blister Status: Acute (5) Bruising Status: Acute (6) Postoperative pain Status: Acute (7) Right knee DJD Status: Acute Review of Systems Constitutional: No fever, No chills Respiratory: No shortness of breath Cardiac: No chest pain Abdomen: No pain, No nausea, No vomiting Male : + hematuria Heme: + abnormal bleeding/bruising Objective Vital Signs Date Time Temp Pulse Resp B/P (MAP) Pulse Ox O2 Delivery O2 Flow Rate FiO2 05/18/17 08:52 94 Room Air 05/18/17 07:40 37.1 66 18 150/88 (108) 94 Room Air 05/17/17 23:50 Room Air 05/17/17 23:22 37.2 77 17 121/84 (96) 94 Room Air 05/17/17 15:30 Room Air 05/17/17 15:29 37.5 71 18 158/99 (118) 95 Room Air Physical Exam General Appearance: no apparent distress Eyes: normal inspection ENT: hearing grossly normal Neck: no JVD Respiratory/Chest: no respiratory distress, no accessory muscle use Cardiovascular: no JVD Extremities: normal inspection Neurologic/Psychiatric: alert, normal mood/affect, oriented x 3 Skin: normal color Laboratory Results Last 24 Hours Test 05/17/17 19:55 05/18/17 07:27 Sodium Level 138 mmol/L 136 mmol/L Potassium Level 3.8 mmol/L 3.8 mmol/L Chloride Level 104 mmol/L 103 mmol/L Carbon Dioxide Level 28 mmol/L 28 mmol/L Anion Gap 6.0 mmol/L 6.0 mmol/L Blood Urea Nitrogen 19 mg/dl 14 mg/dl Creatinine 1.68 mg/dl 1.07 mg/dl Est Creatinine Clear Calc Drug Dose 60.3 ml/min 94.6 ml/min Estimated GFR () 51.1 88.2 Estimated GFR (Non- 44.1 76.1 BUN/Creatinine Ratio 11.4 13.5 Random Glucose 105 mg/dl 96 mg/dl Calcium Level 8.6 mg/dl 8.5 mg/dl Assessment and Plan A/P: ARF, Bilateral hydro, UR, BPH, Gross hematuria ARF improved. Bilateral hydro secondary to BPH and UR. Recommend rechecking a renal u/s in 1 week to ensure improvement. Gross hematuria slightly worse this morning. Will have nursing place a 22Fr coude 3-way ma catheter, hand irrigate, and then start CBI. Continue hand irrigation qshift. Continue to monitor H&H. Supportive management with transfusions PRN. Continue Flomax BID and finasteride. Will make him NPO after midnight in the event he needs cysto with fulguration and clot evacuation tomorrow. Will continue to follow along with primary service.
[2017-05-18] MEDS ORDERED: LIDOCAINE HCL 2% JELLY 30 ML TUBE EXT ONE (10:27)
[2017-05-18] MEDS: TAMSULOSIN HCL 0.4 MG CAP PO SCH ×2 (10:47→21:03)
[2017-05-18] MEDS: CARVEDILOL 6.25 MG TAB PO SCH ×2 (10:48→21:03)
[2017-05-18] MEDS: ATORVASTATIN 20 MG TAB PO SCH (10:50)
[2017-05-18] MEDS: AMLODIPINE BESYLATE 5 MG TAB PO SCH (10:51)
[2017-05-18] MEDS: FINASTERIDE 5 MG TAB PO SCH (10:51)
[2017-05-18] MEDS ORDERED: OXYCODONE/ACETAMINOPHEN 5-325 TAB ONE (10:55)
[2017-05-18] MEDS ORDERED: OXYCODONE/ACETAMINOPHEN 5-325 TAB PO PRN (11:00)
[2017-05-18] MEDS ORDERED: OXYBUTYNIN CHLORIDE 5 MG TAB PO PRN (11:00)
[2017-05-18] MEDS ORDERED: CLONIDINE HCL 0.1 MG TAB PO PRN (11:15)
[2017-05-18] MEDS ORDERED: POLYETHYLENE (MIRALAX) 17 GM PACK PO PRN (11:15)
[2017-05-18] MEDS: PHENAZOPYRIDINE HCL 200 MG TAB PO PRN (11:57)
--- NOTE | 2017-05-18 19:23 | Progress Note ---
Medicine Progress Note Date & Time of Visit: May 18, 2017 at 11:00 . Subjective Ongoing hematuria + clots. 3-way Copeland inserted for irrigation. Experienced some discomfort with Copeland change. No fever. No chest pain. No cough or SOB. No nausea, vomiting, diarrhea. . Objective Last 8 Hrs Date Time Temp Pulse Resp B/P (MAP) Pulse Ox O2 Delivery O2 Flow Rate FiO2 05/18/17 15:26 37.0 82 18 124/70 (88) 94 Room Air 05/18/17 13:19 80 125/83 (97) 05/18/17 11:23 36.9 80 18 162/100 (120) 94 Room Air Physical Exam: General- lying in bed, no acute distress Neck- no JVD Lungs- clear to auscultation; no respiratory distress Heart- RRR, no murmur or gallop Abdomen- + BS, soft, nontender - Copeland cath draining grossly bloody urine / irrigation fluid Extremities- no pretibial edema or calf tenderness; no cyanosis or clubbing Neuro- alert . Laboratory Results: Last 24 Hours Test 05/17/17 19:55 05/18/17 07:27 Sodium Level 138 mmol/L 136 mmol/L Potassium Level 3.8 mmol/L 3.8 mmol/L Chloride Level 104 mmol/L 103 mmol/L Carbon Dioxide Level 28 mmol/L 28 mmol/L Anion Gap 6.0 mmol/L 6.0 mmol/L Blood Urea Nitrogen 19 mg/dl 14 mg/dl Creatinine 1.68 mg/dl 1.07 mg/dl Est Creatinine Clear Calc Drug Dose 60.3 ml/min 94.6 ml/min Estimated GFR () 51.1 88.2 Estimated GFR (Non- 44.1 76.1 BUN/Creatinine Ratio 11.4 13.5 Random Glucose 105 mg/dl 96 mg/dl Calcium Level 8.6 mg/dl 8.5 mg/dl Assessment & Plan URINARY RETENTION Presented with difficulty voiding and suprapubic discomfort. Copeland cath placed in ED with immediate drainage of [address] demonstrated bilateral hydronephrosis. Urology consulted. Continue Copeland cath. Eventual outpatient cystoscopy anticipated. ACUTE KIDNEY INJURY Serum creatinine 2.87 at time of admission. Obstructive uropathy secondary to urinary retention. Postobstructive diuresis. Received IV fluids with improvement. Serum creatinine yesterday morning was 1.39, but alecia to 1.68 last evening. IV fluids increased. Serum creatinine today = 1.07. Follow. HEMATURIA Probably secondary to Copeland insertion. Urine cytology negative for malignancy. 3-way Copeland placed for irrigation. Eventual outpatient cystoscopy anticipated. HYPERTENSION Episodic BP elevations due to discomfort from urinary retention. HCTZ and lisinopril on hold due to THERESA. Continue carvedilol. Add clonidine PRN. VTE PROPHYLAXIS No anticoagulants due to gross hematuria. SCD's. Ambulate. DISPOSITION Expected discharge to home. Family Medicine follow-up with Dr. Gillis. Urology follow-up with [facility]. . Current Inpatient Medications: Current Inpatient Medications Medications (Trade) Dose Ordered Sig/Sana Route Start Time Stop Time Status Last Admin Dose Admin Acetaminophen (Tylenol Tab) 650 mg Q4H PRN PO 05/16/17 16:45 06/15/17 16:44 05/18/17 05:14 650 MG Ondansetron HCl (Zofran Inj) 4 mg Q6H PRN IV 05/16/17 16:45 06/15/17 16:44 Atorvastatin Calcium (Lipitor Tab) 20 mg DAILY PO 05/17/17 09:00 06/16/17 08:59 05/18/17 10:50 20 MG Carvedilol (Coreg Tab) 6.25 mg BID PO 05/16/17 21:00 06/15/17 20:59 05/18/17 10:48 6.25 MG Tamsulosin HCl (Flomax Cap) 0.4 mg BID PO 05/17/17 09:00 06/16/17 08:59 05/18/17 10:47 0.4 MG Finasteride (Proscar Tab) 5 mg QAM PO 05/17/17 09:00 06/16/17 08:59 05/18/17 10:51 5 MG Sodium Chloride 1,000 ml @ 150 mls/hr Q6H40M IV 05/17/17 18:15 06/16/17 18:14 05/18/17 10:46 200 MLS/HR Amlodipine Besylate (Norvasc Tab) 5 mg QAM PO 05/18/17 09:00 06/17/17 08:59 05/18/17 10:51 5 MG Phenazopyridine HCl (Pyridium Tab) 200 mg TID PRN PO 05/18/17 11:00 06/17/17 10:59 05/18/17 11:57 200 MG Oxycodone/ Acetaminophen (Percocet 5-325mg Tab) pa`1-2 tabs for pain 1 ... Q4H PRN PO 05/18/17 11:00 06/01/17 10:59 Oxybutynin Chloride (Ditropan Tab) 5 mg TID PRN PO 05/18/17 11:00 06/17/17 10:59 Docusate Sodium (coLACE CAP) 100 mg BID PO 05/18/17 21:00 06/17/17 20:59 Polyethylene (Miralax Powder Packet) 17 gm DAILY PRN PO 05/18/17 11:15 06/17/17 11:14 Clonidine HCl (Catapres Tab) 0.1 mg Q4H PRN PO 05/18/17 11:15 06/17/17 11:14
[2017-05-18] MEDS: DOCUSATE SODIUM 100 MG CAP PO SCH (21:03)
[2017-05-19] MEDS: SODIUM CHLORIDE 0.45% 1000ML 1,000 ML IV SCH ×2 (00:27→07:00)
[2017-05-19] MEDS ORDERED: NURSING DECISION MEDICATION ORDER SCH (01:15)
[2017-05-19 06:27] LABS: HEMATOCRIT 38.4 % (42-52); MEAN CELL VOLUME 88.3 fL (80-100); MEAN CORPUSCULAR HEMOGLOBIN 30.3 pg (25-34); MEAN CORPUSCULAR HGB CONC 34.4 g/dl (32-36); MEAN PLATELET VOLUME 9.5 fL (7.4-10.4); PLATELET COUNT 169 K/uL (130-400); RED BLOOD COUNT 4.35 M/uL (4.7-6.1); WHITE BLOOD COUNT 9.67 K/uL (4.8-10.8)
[2017-05-19 06:59] LABS: BUN/CREATININE RATIO 12.6 (10-20); CALCIUM 8.4 mg/dl (8.5-10.1); CREATININE 0.94 mg/dl (0.60-1.40); POTASSIUM 3.7 mmol/L (3.5-5.1)
[2017-05-19 07:27] VITALS: BP 142/89; PULSE 72; TEMP 37; O2SAT 92
--- NOTE | 2017-05-19 07:42 | Progress Note ---
Subjective Date of Service: May 19, 2017. Subjective Pt evaluation today including: conversation w/ patient, chart review, lab review Voiding: ma catheter in place (patent, draining clear urine with slow CBI running. ) 57 yo male with BPH, UR, bilateral hydro, and gross hematuria. Ma draining clear urine with slow CBI running. H&H stable. Cr has normalized. UC&S is negative. Cytology negative for high grade urothelial carcinoma. Pt denies pain or bladder spams this morning. Problem List Social History Problems: (1) Acute urinary retention Status: Acute (2) THERESA (acute kidney injury) Status: Acute (3) Anemia Status: Acute (4) Blister Status: Acute (5) Bruising Status: Acute (6) Postoperative pain Status: Acute (7) Right knee DJD Status: Acute Review of Systems Constitutional: No fever, No chills Respiratory: No shortness of breath Cardiac: No chest pain Abdomen: No pain, No nausea, No vomiting Male : No hematuria Heme: No abnormal bleeding/bruising Objective Vital Signs Date Time Temp Pulse Resp B/P (MAP) Pulse Ox O2 Delivery O2 Flow Rate FiO2 05/19/17 07:27 37.0 72 19 142/89 (106) 92 Room Air 05/19/17 01:00 Room Air 05/18/17 23:49 36.9 83 16 118/74 (89) 94 Room Air 05/18/17 21:00 82 130/75 (93) 05/18/17 15:50 Room Air 05/18/17 15:26 37.0 82 18 124/70 (88) 94 Room Air 05/18/17 13:19 80 125/83 (97) 05/18/17 11:23 36.9 80 18 162/100 (120) 94 Room Air 05/18/17 10:52 85 176/107 (130) 05/18/17 08:52 94 Room Air 05/18/17 08:20 Room Air 05/18/17 07:40 37.1 66 18 150/88 (108) 94 Room Air Physical Exam General Appearance: no apparent distress Eyes: normal inspection ENT: hearing grossly normal Neck: no JVD Respiratory/Chest: no respiratory distress, no accessory muscle use Cardiovascular: no JVD Extremities: normal inspection Neurologic/Psychiatric: alert, normal mood/affect, oriented x 3 Skin: normal color Laboratory Results Last 24 Hours Test 05/19/17 05:56 White Blood Count 9.67 K/uL Red Blood Count 4.35 M/uL Hemoglobin 13.2 g/dL Hematocrit 38.4 % Mean Corpuscular Volume 88.3 fL Mean Corpuscular Hemoglobin 30.3 pg Mean Corpuscular Hemoglobin Concent 34.4 g/dl RDW Standard Deviation 40.5 fL RDW Coefficient of Variation 12.5 % Platelet Count 169 K/uL Mean Platelet Volume 9.5 fL Sodium Level 136 mmol/L Potassium Level 3.7 mmol/L Chloride Level 104 mmol/L Carbon Dioxide Level 28 mmol/L Anion Gap 4.0 mmol/L Blood Urea Nitrogen 12 mg/dl Creatinine 0.94 mg/dl Est Creatinine Clear Calc Drug Dose 107.7 ml/min Estimated GFR () 103.2 Estimated GFR (Non- 89.0 BUN/Creatinine Ratio 12.6 Random Glucose 98 mg/dl Calcium Level 8.4 mg/dl Assessment and Plan A/P: ARF, Bilateral hydro, UR, BPH, Gross hematuria ARF resolved. Bilateral hydro secondary to BPH and UR. Recommend rechecking a renal u/s in 1 week to ensure improvement. Hematuria improved. Will try clamping CBI this morning. Continue to monitor H&H. Supportive management with transfusions PRN. Continue Flomax BID and finasteride. No planned surgical intervention at this time. Will plan for a trial of void in 10 days. Outpatient cysto needed for evaluation of gross hematuria and BPH as well. Will arrange. Will continue to follow along with primary service.
[2017-05-19] MEDS: TAMSULOSIN HCL 0.4 MG CAP PO SCH (08:32)
[2017-05-19] MEDS: DOCUSATE SODIUM 100 MG CAP PO SCH (08:32)
[2017-05-19] MEDS: ATORVASTATIN 20 MG TAB PO SCH (08:33)
[2017-05-19] MEDS: CARVEDILOL 6.25 MG TAB PO SCH (08:33)
[2017-05-19] MEDS: PHENAZOPYRIDINE HCL 200 MG TAB PO PRN (08:33)
[2017-05-19] MEDS: AMLODIPINE BESYLATE 5 MG TAB PO SCH (08:33)
[2017-05-19] MEDS: FINASTERIDE 5 MG TAB PO SCH (08:34)
[2017-05-19] MEDS: ACETAMINOPHEN 325 MG TAB PO PRN (13:12)
--- NOTE | 2017-05-19 14:31 | Progress Note ---
Progress Note Date of Service May 19, 2017. Progress Note Pt seen this afternoon with Dr. Evans. CBI clamped, and ma draining light orange/zapata urine. Pt did received Pyridium earlier this morning. Plan to keep CBI clamped. Pt OK for d/c home with ma catheter from [facility]. Will arrange for outpatient TOV and cysto. Thanks for allowing us to participate in this pt's care.
[2017-05-19 15:24] VITALS: BP 125/79; PULSE 91; TEMP 36.9; O2SAT 94
--- NOTE | 2017-05-19 17:32 | Progress Note ---
Medicine Progress Note Date & Time of Visit: May 19, 2017 at 17:32 . Subjective Doing well. Hematuria improving. No suprapubic discomfort. No nausea, vomiting. Ambulating. Received instructions from nursing staff re: Copeland care. . Objective Last 8 Hrs Date Time Temp Pulse Resp B/P (MAP) Pulse Ox O2 Delivery O2 Flow Rate FiO2 05/19/17 15:24 36.9 91 18 125/79 (94) 94 Room Air Physical Exam: General- no distress Neck- no JVD Lungs- clear to auscultation; no respiratory distress Heart- RRR, no murmur or gallop Abdomen- + BS, soft, nontender - Copeland cath draining with gross hematuria, but less severe Extremities- no pretibial edema or calf tenderness; no cyanosis or clubbing Neuro- alert . Laboratory Results: Last 24 Hours Test 05/19/17 05:56 White Blood Count 9.67 K/uL Red Blood Count 4.35 M/uL Hemoglobin 13.2 g/dL Hematocrit 38.4 % Mean Corpuscular Volume 88.3 fL Mean Corpuscular Hemoglobin 30.3 pg Mean Corpuscular Hemoglobin Concent 34.4 g/dl RDW Standard Deviation 40.5 fL RDW Coefficient of Variation 12.5 % Platelet Count 169 K/uL Mean Platelet Volume 9.5 fL Sodium Level 136 mmol/L Potassium Level 3.7 mmol/L Chloride Level 104 mmol/L Carbon Dioxide Level 28 mmol/L Anion Gap 4.0 mmol/L Blood Urea Nitrogen 12 mg/dl Creatinine 0.94 mg/dl Est Creatinine Clear Calc Drug Dose 107.7 ml/min Estimated GFR () 103.2 Estimated GFR (Non- 89.0 BUN/Creatinine Ratio 12.6 Random Glucose 98 mg/dl Calcium Level 8.4 mg/dl Assessment & Plan URINARY RETENTION Presented with difficulty voiding and suprapubic discomfort. Copeland cath placed in ED with immediate drainage of [address] demonstrated bilateral hydronephrosis. Urology consulted. Continue Copeland cath. Outpatient US recommended in 1 week for f/u of hydronephrosis. Eventual outpatient cystoscopy anticipated. ACUTE KIDNEY INJURY Serum creatinine 2.87 at time of admission. Obstructive uropathy secondary to urinary retention. Renal function initially improved after placement of Copeland catheter. Had significant postobstructive diuresis with rising creatinine. Increased IV fluids with improvement. Serum creatinine today = 0.94. Follow. HEMATURIA Probably secondary to Copeland insertion. Urine cytology negative for malignancy. 3-way Copeland placed for irrigation. Eventual outpatient cystoscopy anticipated. HYPERTENSION Episodic BP elevations due to discomfort from urinary retention. HCTZ and lisinopril on hold due to THERESA. Carvedilol continued. Renal function improved by discharge and lisinopril restarted at reduced dose of 5 mg daily. Follow and titrate Rx. VTE PROPHYLAXIS No anticoagulants due to gross hematuria. SCD's. Ambulate. DISPOSITION Discharge to home. Family Medicine follow-up with Dr. Gillis. Urology follow-up with DENNY. . Current Inpatient Medications: Current Inpatient Medications Medications (Trade) Dose Ordered Sig/Sana Route Start Time Stop Time Status Last Admin Dose Admin Acetaminophen (Tylenol Tab) 650 mg Q4H PRN PO 05/16/17 16:45 06/15/17 16:44 05/19/17 13:12 650 MG Ondansetron HCl (Zofran Inj) 4 mg Q6H PRN IV 05/16/17 16:45 06/15/17 16:44 Atorvastatin Calcium (Lipitor Tab) 20 mg DAILY PO 05/17/17 09:00 06/16/17 08:59 05/19/17 08:33 20 MG Carvedilol (Coreg Tab) 6.25 mg BID PO 05/16/17 21:00 06/15/17 20:59 05/19/17 08:33 6.25 MG Tamsulosin HCl (Flomax Cap) 0.4 mg BID PO 05/17/17 09:00 06/16/17 08:59 05/19/17 08:32 0.4 MG Finasteride (Proscar Tab) 5 mg QAM PO 05/17/17 09:00 06/16/17 08:59 05/19/17 08:34 5 MG Amlodipine Besylate (Norvasc Tab) 5 mg QAM PO 05/18/17 09:00 06/17/17 08:59 05/19/17 08:33 5 MG Phenazopyridine HCl (Pyridium Tab) 200 mg TID PRN PO 05/18/17 11:00 06/17/17 10:59 05/19/17 08:33 200 MG Oxycodone/ Acetaminophen (Percocet 5-325mg Tab) redd1-2 tabs for pain 1 ... Q4H PRN PO 05/18/17 11:00 06/01/17 10:59 Oxybutynin Chloride (Ditropan Tab) 5 mg TID PRN PO 05/18/17 11:00 06/17/17 10:59 05/19/17 08:34 5 MG Docusate Sodium (coLACE CAP) 100 mg BID PO 05/18/17 21:00 06/17/17 20:59 05/19/17 08:32 100 MG Polyethylene (Miralax Powder Packet) 17 gm DAILY PRN PO 05/18/17 11:15 06/17/17 11:14 Clonidine HCl (Catapres Tab) 0.1 mg Q4H PRN PO 05/18/17 11:15 06/17/17 11:14
[2017-05-19] MEDS ORDERED: FLM4 PO (17:36)
[2017-05-19] MEDS ORDERED: ACET-1138 PO (17:36)
[2017-05-19] MEDS ORDERED: LSN5 PO (17:36)
[2017-05-19] MEDS ORDERED: FINA5TAB4 PO (17:36)
--- NOTE | 2017-05-19 17:44 | Discharge Instructions ---
Discharge Instructions Date of Service May 19, 2017. Admission Reason for Admission: trouble emptying bladder . Discharge Discharge Diagnosis / Problem: trouble emptying bladder Discharge Goals Goal(s): Decrease discomfort, Improve disease control Activity Recommendations Activity Limitations: resume your previous activity . Instructions / Follow-Up Instructions / Follow-Up APPOINTMENTS: INTERNAL MEDICINE 05/24/2017 1:00 PM Marylou Valiente DO (covering for Dr. Gillis) UROLOGY [facility] (Dr. Evans, [facility]) Please call office for appointment. OTHER INSTRUCTIONS: Care of Copeland catheter as directed. Start finasteride (Proscar) 5 mg daily for prostate. Increase tamsulosin (Flomax) to 0.4 mg twice a day for prostate. Hold hydrochlorothiazide and usual dose of lisinopril. New dose of lisinopril is 5 mg daily. Dose may be increased gradually if repeat kidney tests are OK. Continue carvedilol (Coreg) as before. Stop flurbiprofen. It can cause kidney damage. Avoid other similar medications like ibuprofen (Advil, Motrin) and naproxen ( Aleve). Drink plenty of fluids. Seek medical attention if you have: * temperature above 101 * chest pain or trouble breathing * abdominal pain, nausea, vomiting * diarrhea, dark stools or bloody stools * worsening blood in urine or severe bladder (lower abdominal) pain * any unanswered questions or concerns Call 911 if symptoms are severe. Call if you have any questions or problems. My cell # is [phone]. You can also reach a [facility] hospitalist on duty at [facility] 24 hours a day by calling [phone]. Please take good care of yourself. Amado Luo . Current Hospital Diet Patient's current hospital diet: AHA Diet (Heart Healthy) Discharge Diet Recommended Diet: AHA Diet (Heart Healthy) Pending Studies Studies pending at discharge: no Medical Emergencies . Who to Call and When: Medical Emergencies: If at any time you feel your situation is an emergency, please call 911 immediately. . Non-Emergent Contact Non-Emergency issues call your: Primary Care Provider, Urologist . . "Provider Documentation" section prepared by Amado Luo. . VTE Core Measure Inpt VTE Proph given/why not?: SCD's
[2017-05-19 18:04] VITALS: BP 125/79; PULSE 91; TEMP 36.9; O2SAT 94
--- NOTE | 2017-05-20 09:51 | Discharge Summary ---
Discharge Summary Date of Service May 20, 2017. Discharge Summary Admission Date: May 16, 2017 at 16:39 Discharge Date: May 19, 2017 Discharge Disposition: Home Principal Diagnosis: acute kidney injury secondary to obstructive uropathy . Secondary Diagnoses/Problems: Chronic and Resolved Medical Problems: (1) Dyslipidemia Status: Chronic (2) HTN (hypertension) Status: Chronic (3) Renal calculi Status: Chronic Surgical Problems: (1) Status post total knee replacement, left Status: Chronic (2) Status post total knee replacement, right Status: Chronic . Procedures: CT abdomen and pelvis IV fluids placement of Ma catheter . Consultations: Urology with KERI Tong and Dr. Evans. . Pending Studies/Follow-Up: Please order renal US in about 1 week re: hydronephrosis. Copies: KERI Tong and Dr. Evans. . Medication Reconciliation New Medications: Acetaminophen (Tylenol Extra Strength) 500 Mg Tab 1000 MG PO Q8 PRN for Pain, #60 TAB no prescription necessary Finasteride (Proscar) 5 Mg Tab 5 MG PO DAILY, #30 TAB 5 Refills Lisinopril (Lisinopril) 5 Mg Tab 5 MG PO DAILY, #30 TAB 5 Refills Tamsulosin HCl (Tamsulosin HCl) 0.4 Mg Cap 0.4 MG PO BID, #60 CAP 5 Refills Take first dose after breakfast and second dose at bedtime. Continued Medications: Atorvastatin (Lipitor) 20 Mg Tab 1 TAB PO DAILY for 90 Days, #90 TAB 1 Refill Carvedilol (Coreg) 6.25 Mg Tab 1 TAB PO BID for 90 Days, #180 TAB 1 Refill Discontinued Medications: Flurbiprofen (Flurbiprofen) 100 Mg Tab 100 MG PO BID PRN for Pain Hydrochlorothiazide (Hctz) 12.5 Mg Cap 1 CAP PO DAILY for 30 Days, #30 CAP 5 Refills Lisinopril (Lisinopril) 40 Mg Tab 40 MG PO DAILY Sulfamethoxazole-Trimethoprim (Bactrim 400MG/80MG) 1 Tab Tab 1 TAB PO BID for 10 Days, #20 TAB Tamsulosin Hcl (Flomax) 0.4 Mg Cap 0.4 MG PO DAILY, CAP Admission Information HPI (per Admitting provider): 57 year old male who presents to the ED with difficulty urinating. Patient reports his symptoms began about two weeks ago. He was seen by his PCP on 05/11 and was diagnosed with a UTI and given a prescription for Bactrim. Patient reports no improvement in his symptoms. He reports minimal urine output and increasing suprapubic pain. His urine has been very dark in color. He reports some occasional right sided low back pain. He denies fever and chills. He has had some intermittent nausea and today he had one episode of emesis. He denies hematemesis or coffee ground emesis. No abdominal pain or diarrhea. He denies chest pain and shortness of breath. No lightheadedness or dizziness. In the ED, patient was found to have significant urinary retention. Ma was placed and drained ~ 2600cc immediately. Creat is found to be 2.8 (normal baseline). CT scan shows BL hydroureteronephrosis and moderately enlarged prostate. There are also bladder lesions concerning for malignancy. BP was elevated on arrival however has been improving since ma was placed. . Physical Exam (per Admitting): General Appearance: WD/WN, no apparent distress Head: normocephalic, atraumatic Eyes: normal inspection, EOMI, sclerae normal ENT: hearing grossly normal, + pertinent finding (mucous membranes moist) Neck: supple, no JVD, trachea midline Respiratory/Chest: lungs clear, normal breath sounds, no respiratory distress Cardiovascular: regular rate, rhythm, no edema, normal peripheral pulses Abdomen/GI: normal bowel sounds, soft, no organomegaly, + tenderness (mild suprapubic) Genitourinary - Male: + pertinent finding (ma in place draining bloody urine ) Extremities/Musculoskelatal: normal inspection, no calf tenderness, normal capillary refill Neurologic/Psych: no motor/sensory deficits, alert, normal mood/affect, oriented x 3 Skin: normal color, warm/dry Hospital Course URINARY RETENTION Presented with difficulty voiding and suprapubic discomfort. Ma cath placed in ED with immediate drainage of [address] demonstrated bilateral hydronephrosis. Urology consulted. Continue Ma cath. Outpatient US recommended in 1 week for f/u of hydronephrosis. Eventual outpatient cystoscopy anticipated. ACUTE KIDNEY INJURY Serum creatinine 2.87 at time of admission. Obstructive uropathy secondary to urinary retention. Renal function initially improved after placement of Ma catheter. Had significant postobstructive diuresis with rising creatinine. Increased IV fluids with improvement. Serum creatinine today = 0.94. Follow. HEMATURIA Probably secondary to Ma insertion. Urine cytology negative for malignancy. 3-way Ma placed for irrigation. Eventual outpatient cystoscopy anticipated. HYPERTENSION Episodic BP elevations due to discomfort from urinary retention. HCTZ and lisinopril on hold due to THERESA. Carvedilol continued. Renal function improved by discharge and lisinopril restarted at reduced dose of 5 mg daily. Follow and titrate Rx. VTE PROPHYLAXIS No anticoagulants due to gross hematuria. SCD's. Ambulate. DISPOSITION Discharge to home. Family Medicine follow-up with Dr. Gillis. Urology follow-up with DENNY. . Total time spent on discharge = 35 min. This includes examination of the patient, discharge planning, medication reconciliation, and communication with other providers. . Discharge Instructions Date of Service May 19, 2017. Admission Reason for Admission: trouble emptying bladder . Discharge Discharge Diagnosis / Problem: trouble emptying bladder Discharge Goals Goal(s): Decrease discomfort, Improve disease control Activity Recommendations Activity Limitations: resume your previous activity . Instructions / Follow-Up Instructions / Follow-Up APPOINTMENTS: INTERNAL MEDICINE 05/24/2017 1:00 PM Marylou Valiente DO (covering for Dr. Gillis) UROLOGY [facility] (Dr. Evans[facility]) Please call office for appointment. OTHER INSTRUCTIONS: Care of Ma catheter as directed. Start finasteride (Proscar) 5 mg daily for prostate. Increase tamsulosin (Flomax) to 0.4 mg twice a day for prostate. Hold hydrochlorothiazide and usual dose of lisinopril. New dose of lisinopril is 5 mg daily. Dose may be increased gradually if repeat kidney tests are OK. Continue carvedilol (Coreg) as before. Stop flurbiprofen. It can cause kidney damage. Avoid other similar medications like ibuprofen (Advil, Motrin) and naproxen ( Aleve). Drink plenty of fluids. Seek medical attention if you have: * temperature above 101 * chest pain or trouble breathing * abdominal pain, nausea, vomiting * diarrhea, dark stools or bloody stools * worsening blood in urine or severe bladder (lower abdominal) pain * any unanswered questions or concerns Call 911 if symptoms are severe. Call if you have any questions or problems. My cell # is [phone]. You can also reach a [facility] hospitalist on duty at [facility] 24 hours a day by calling [phone]. Please take good care of yourself. Amado Luo . Current Hospital Diet Patient's current hospital diet: AHA Diet (Heart Healthy) Discharge Diet Recommended Diet: AHA Diet (Heart Healthy) Pending Studies Studies pending at discharge: no Medical Emergencies . Who to Call and When: Medical Emergencies: If at any time you feel your situation is an emergency, please call 911 immediately. . Non-Emergent Contact Non-Emergency issues call your: Primary Care Provider, Urologist . . "Provider Documentation" section prepared by Amado Luo. . VTE Core Measure Inpt VTE Proph given/why not?: SCD's . Additional Copies To Olimpia Van CRNP; Rajesh Evans MD, Urology
== END 2017-05-19 18:30 | disposition home or self-care (01) | DRG 726 ==
LOC: C.EDB 12:29 → C.MSW 16:39 → ENRESERV 16:51
PROVIDERS: ADMIT Hospitalist; ATTEND Hospitalist
PROC: 0T9B70Z Drainage of Bladder with Drainage Device, Via Natural or Artificial Opening (ICD-10-PCS; principal; 2017-05-16)
DX: N40.1 Benign prostatic hyperplasia with lower urinary tract symptoms (principal); N17.9 Acute kidney failure, unspecified; N13.39 Other hydronephrosis; I10 Essential (primary) hypertension; E78.5 Hyperlipidemia, unspecified; R33.9 Retention of urine, unspecified; N20.0 Calculus of kidney; R31.0 Gross hematuria; Y84.6 Urinary catheterization as the cause of abnormal reaction of the patient, or of later complication, without mention of misadventure at the time of the procedure; Z87.442 Personal history of urinary calculi; Z87.891 Personal history of nicotine dependence; Z96.653 Presence of artificial knee joint, bilateral; Y92.238 Other place in hospital as the place of occurrence of the external cause

== ENCOUNTER → 2017-05-27 | Outpatient (CLI) | payer OTHER ==
[~2017-05-27] MED LIST changes: +ACET-1138 PO; -ACET325T96 PO; -ASPI1TAB83 PO; -ATOR-22 PO; +ATOR-54 PO; -B-COTAB18 PO; +CARV6.252 PO; -CHOL2000 PO; -CRG625 PO; -FBR PO; +FINA5TAB4 PO; -HYDC25 PO; -LISI40TA PO; +LSN5 PO; -MISCCAP80 PO; -MULT-506 PO; -OXYC-57 PO; -POTASSIUM PO; -WARF2TAB8 PO
--- NOTE | 2017-05-27 10:44 | DIAGNOSTIC IMAGING REPORT ---
(RENAL)RETROPERITON COMP HISTORY: Urinary retention N40.0 Benign prostatic [id number] Urine retentionno latex COMPARISON: None. FINDINGS: Right kidney: Maximum dimension 11.9 cm. Minimal positional fullness of the collecting system. Normal corticomedullary differentiation and cortical thickness. Left kidney: Maximum dimension 11.9 cm. No evidence for hydronephrosis. Normal corticomedullary differentiation and cortical thickness. Bladder: Copeland catheter in position. Following clamping of the catheter at the 40 minute time frame, fullness of the right renal collecting system is seen with the patient in the decubitus position IMPRESSION: Positional fullness right renal collecting system. No evidence for significant hydronephrosis. The above report was generated using voice recognition software. It may contain grammatical, syntax or spelling errors. Electronically signed by: Rush Field M.D. 05/27/2017 10:43 AM Dictated Date/Time: 05/27/2017 10:41 AM
== END | disposition home or self-care (01) ==
LOC: C.ULTR 09:03
PROVIDERS: ATTEND Urology
DX: N40.0 Benign prostatic hyperplasia without lower urinary tract symptoms (principal); R33.9 Retention of urine, unspecified; N28.89 Other specified disorders of kidney and ureter

== ENCOUNTER → 2017-06-09 | Outpatient (CLI) | payer OTHER ==
[~2017-06-09] MED LIST changes: +CIPR-255 PO; +FINA5TAB PO; +LISI-729 PO; +OXYC7.5T65 PO; +PHEN-775 PO
--- NOTE | 2017-06-09 09:12 | DIAGNOSTIC IMAGING REPORT ---
CHEST 2 VIEWS ROUTINE HISTORY: Preop. R31.0 Gross hematuria COMPARISON: Chest 08/02/2014. FINDINGS: The lungs are clear. Cardiac silhouette is normal in size. No pleural effusions. No pneumothorax. 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 IMPRESSION: No acute process. Electronically signed by: Luis Ohara M.D. 06/09/2017 9:11 AM Dictated Date/Time: 06/09/2017 9:08 AM
[2017-06-09 09:33] LABS: URINE APPEARANCE CLEAR (CLEAR); URINE BILIRUBIN NEG (NEG); URINE COLOR YELLOW; URINE NITRITE NEG (NEG); URINE SPECIFIC GRAVITY 1.021 (1.000-1.030); UROBILINOGEN NEG (NEG)
[2017-06-09 09:42] LABS: MANUAL MICROSCOPIC REQUIRED? NO; REVIEW REQ? NO
[2017-06-09 10:01] LABS: BLOOD UREA NITROGEN 22 mg/dl (7-18); BUN/CREATININE RATIO 21.8 (10-20)
== END | disposition home or self-care (01) ==
LOC: C.RAD 08:28
PROVIDERS: ATTEND Urology
DX: N28.9 Disorder of kidney and ureter, unspecified (principal); R31.0 Gross hematuria; N40.0 Benign prostatic hyperplasia without lower urinary tract symptoms

== ENCOUNTER 2017-06-16 09:25 | Day surgery (SDC) | payer BC, OTHER ==
[2017-06-15 09:03] VITALS: BMI 36.0
[~2017-06-16] VITALS: Ht 172.7 cm; Wt 109.0 kg
[~2017-06-16 09:25] MED LIST changes: -ACET-1138 PO; +CEFAZOLIN 3000MG IV PUSH 15 ML IV SCH; -CIPR-255 PO; +CIPROFLOXACIN / D5W 400 MG IV SCH; -FINA5TAB4 PO; +LACTATED RINGER'S 1000ML 1,000 ML IV SCH; -LSN5 PO; -OXYC7.5T65 PO; -PHEN-775 PO
[2017-06-16 09:43] VITALS: BP 161/94; PULSE 87; TEMP 36.7; O2SAT 96; Ht 172.7 cm; Wt 109.0 kg
[2017-06-16] MEDS ORDERED: FENTANYL CITRATE INJ 50 MCG/1 ML 2 ML VIAL ONE ×2 (10:51→12:57)
[2017-06-16] MEDS ORDERED: MIDAZOLAM HCL 1 MG/ML 2ML VIAL ONE (10:51)
[2017-06-16] MEDS ORDERED: ATROPINE SULFATE 0.1 MG/ML 5ML SYR IV PRN (11:30)
[2017-06-16] MEDS ORDERED: EpHEDrine SULFATE INJ 50 MG/ML AMP IV PRN (11:30)
[2017-06-16] MEDS ORDERED: ONDANSETRON INJ 2 MG/ML 2 ML VIAL IV PRN (11:30)
[2017-06-16] MEDS ORDERED: PROMETHAZINE HCL INJ 6.25 MG in SODIUM CHLORIDE 0.9% 50ML 50 ML IV PRN (11:30)
--- NOTE | 2017-06-16 12:32 | History & Physical Bridge Note ---
H&P Re-Evaluation Bridge Note: I have examined the patient, reviewed the History & Physical and in the interval since the performance of the History & Physical I have noted the following changes of clinical significance: No changes noted
[2017-06-16] MEDS ORDERED: PHENYLEPHRINE HCL INJ 10 MG/ML VIAL ONE (13:01)
[2017-06-16] MEDS ORDERED: PROPOFOL IV EMULSION 10 MG/ML 20 ML VIAL IV ONE (13:18)
[2017-06-16] MEDS ORDERED: DEXAMETHASONE SOD INJ 4 MG/ML VIAL ONE (13:18)
[2017-06-16] MEDS ORDERED: LIDOCAINE HCL 2% 2 ML VIAL (20MG/ML) ONE (13:18)
[2017-06-16] MEDS ORDERED: ONDANSETRON INJ 2 MG/ML 2 ML VIAL ONE (13:18)
[2017-06-16] MEDS ORDERED: BELLADONNA/OPIUM SUPP 60 MG SUPP PR ONE ×2 (13:19→13:40)
--- NOTE | 2017-06-16 14:07 | [facility] Post Operative Brief Note ---
Immediate Operative Summary Operative Date Jun 16, 2017. Pre-Operative Diagnosis Urinary Retention, Benign Prostatic Hypertrophy, Abnormal Cystoscopy Post-Operative Diagnosis Urinary Retention, Benign Prostatic Hypertrophy, Abnormal Cystoscopy Procedure(s) Performed Cystoscopy, Bladder Biopsy, Fulguration, Transurethral Resection and Button Vaporization of Prostate Surgeon Dr Evans Reporting Consultant Surgeon(s) None Estimated Blood Loss 40cc Findings Open fossa after resection Specimens A: Bladder Biopsies B: Prostate Chips
[2017-06-16] MEDS ORDERED: CIPR-255 PO (14:25)
[2017-06-16] MEDS ORDERED: OXYC7.5T65 PO (14:25)
[2017-06-16] MEDS ORDERED: PHEN-775 PO (14:25)
[2017-06-16] MEDS ORDERED: EpHEDrine SULFATE 50MG/5ML SYR ONE (14:27)
--- NOTE | 2017-06-16 14:27 | Discharge Instructions ---
Discharge Instructions Date of Service Jun 16, 2017. Admission Reason for Admission: Benign Prostatic Hypertrophy Discharge Discharge Diagnosis / Problem: BPH, retention s/p TURP, bladder biopsy Discharge Goals Goal(s): Decrease discomfort, Diagnostic testing, Therapeutic intervention Activity Recommendations Activity Limitations: as noted below Lifting Limitations: no more than 25 pounds (x 1 week) Exercise/Sports Limitations: rest today, gradually increase as tolerated (over 1 week) May Resume Sexual Activity: after follow-up appointment Shower/Bathe: tomorrow (no tub bath with ma in place) Driving or Machine Use: resume 3 days after discharge . Instructions / Follow-Up Instructions / Follow-Up Ma to gravity drainage as instructed Current Hospital Diet Patient's current hospital diet: Discharge Diet Recommended Diet: Regular Diet (good fluid intake) Procedures Procedures Performed: Cystoscopy, Bladder Biopsy, Fulguration, Transurethral Resection and Button Vaporization of Prostate Pending Studies Studies pending at discharge: yes List of pending studies: Pathology check Medical Emergencies . Who to Call and When: Medical Emergencies: If at any time you feel your situation is an emergency, please call 911 immediately. . Non-Emergent Contact Non-Emergency issues call your: Urologist Call Non-Emergent contact if: you have a fever, temperature is above 101, your pain is not controlled, your pain is worsening, your pain is unusual for you, your pain is concerning you, you have any medication questions . . "Provider Documentation" section prepared by Rajesh Evans. . VTE Core Measure Inpt VTE Proph given/why not?: SCD's [place] Drug Monitoring Program Search Results: patient reviewed within database, no issues identified
[2017-06-16] MEDS ORDERED: OXYCODONE/ACETAMINOPHEN 5-325 TAB PO PRN ×2 (14:30)
[2017-06-16] MEDS ORDERED: PHENAZOPYRIDINE HCL 200 MG TAB PO PRN (14:30)
--- NOTE | 2017-06-16 14:33 | [facility] Operative Report ---
Operative Report Operative Date Jun 16, 2017. Pre-Operative Diagnosis Urinary Retention, Benign Prostatic Hypertrophy, Abnormal Cystoscopy Post-Operative Diagnosis Urinary Retention, Benign Prostatic Hypertrophy, Abnormal Cystoscopy Procedure(s) Performed Cystoscopy, Bladder Biopsy, Fulguration, Transurethral Resection and Button Vaporization of Prostate Surgeon Dr Rene Evans Cardiothoracic Anesthesia Technician Surgeon(s) None Estimated Blood Loss 40cc Findings Open prostatic fossa after completion of resection with excellent hemostasis, borderline bladder mucosa biopsied and fulgurated. Specimens A: Bladder Biopsies B: Prostate Chips Drains 26 fr 20 cc H2O ma Anesthesia GALMA Complication(s) None Disposition Recovery Room / PACU Indications Patient is a pleasant 57-year-old male with a history of difficulties with urinary retention despite maximal medical therapy with Flomax and Proscar. Patient is dependent on intermittent catheterization at home but is voiding in small amounts. After discussion of risks and benefits of various forms of management is decided upon a transurethral resection of his prostate gland manage his disease based on his office cystoscopy findings. Please see H&P for further details. Intravenous Ancef and gentamicin provided for antibiotic coverage and SCDs used for DVT prophylaxis. Seen the presence of borderline bladder mucosa on office cystoscopy felt to be most consistent with inflammation a bladder biopsy is also planned today. Description of Procedure Patient was properly identified and brought into the operative suite after identification of appropriate consent in the chart. General anesthesia with laryngeal mask was initiated and patient was prepped and draped in the standard fashion for this procedure. Full timeout procedure was followed. 26 [place] resectoscope was introduced into the bladder using a visual obturator and bladder was surveyed in its entirety. Patient was noted to have an enlarged obstructive prostate gland and inflamed bladder mucosa. Ureteral orifices were easily identified and well removed from the bladder neck. Mild to moderate trabeculation was present. No clear papillary masses or mobile debris or calculi within the bladder was noted. Cold cup bladder biopsy forceps were used to take 3 uniforms sales representative biopsies from within the bladder were sent for pathologic analysis. Bipolar button was used to fulgurate these areas. A bipolar loop was then used to resect the median lobe and elevated bladder neck. Lateral lobes of the prostate were also resected. Bipolar button was then used to vaporize some of the patient's obstructive adenoma and obtain hemostasis. Apical tissue as well as redundant lateral lobes were again resected with prostate chips being irrigated free from the bladder over the course of the case as necessary. After the prostate was noted to be visually unobstructed finishing touches were placed with a bipolar button and excellent hemostasis obtained. Greater than 60% of the tissue was removed by transurethral resection. After this was complete excellent hemostasis was appreciated with a visually obstructive prostate gland. Ureteral orifices were free of injury and no dissection took place distal to the verumontanum. Bladder was noted to be free of injury. Bladder was partially distended and resectoscope was removed. 26 [place] Ma catheter with 20 mL of sterile water was placed within the bladder with return of clear irrigant. Bladder was flushed with isovolemic return. Bladder was ensured to be free of any prostate tissue prior to placement of Ma. Belladonna and opium suppository was provided for additional postoperative analgesia. Anesthesia was reversed and patient was transferred to the recovery room in stable condition. Follow-up care: Patient will be discharged home with a prescription for ciprofloxacin, Percocet and Pyridium. Outpatient trial void is confirmed. Postoperative appointments are also confirmed. Patient is instructed to contact her service should he note any fevers, chills, nausea, vomiting or other difficulties after his surgery. Please see discharge instructions for further limitations. I attest to the content of the Intraoperative Record and any orders documented therein. Any exceptions are noted below.
[2017-06-16] MEDS: FENTANYL CITRATE INJ 50 MCG/1 ML 2 ML VIAL IV PRN ×2 (14:39→14:44)
--- NOTE | 2017-06-16 15:05 | Anesthesiology Progress Note ---
Anesthesia Post Op Note Date & Time Jun 16, 2017 at 15:05 Vital Signs Pain Intensity: 2 Vital Signs Past 12 Hours Date Time Temp Pulse Resp B/P (MAP) Pulse Ox O2 Delivery O2 Flow Rate FiO2 06/16/17 15:00 36.7 71 20 128/77 94 Room Air 06/16/17 14:50 77 20 128/78 94 Room Air 06/16/17 14:40 74 20 128/74 99 Oxymask 10 06/16/17 14:30 78 20 128/84 99 Oxymask 10 06/16/17 14:22 36.3 80 20 137/90 99 Oxymask 10 06/16/17 09:43 36.7 87 20 161/94 (116) 96 Room Air Notes Mental Status: alert / awake / arousable, participated in evaluation Pt Amnestic to Procedure: Yes Nausea / Vomiting: adequately controlled Pain: adequately controlled Airway Patency, RR, SpO2: stable & adequate BP & HR: stable & adequate Hydration State: stable & adequate Anesthetic Complications: no major complications apparent
[2017-06-16 15:12] VITALS: BP 127/74; PULSE 76; TEMP 36.6; O2SAT 93
[2017-06-16 15:42] VITALS: BP 135/71; PULSE 80; TEMP 36.6; O2SAT 95
== END 2017-06-16 16:11 | disposition home or self-care (01) ==
LOC: C.ACU 09:25
PROVIDERS: ATTEND Urology
DX: N40.0 Benign prostatic hyperplasia without lower urinary tract symptoms (principal); R33.9 Retention of urine, unspecified; I10 Essential (primary) hypertension; M19.90 Unspecified osteoarthritis, unspecified site; N28.9 Disorder of kidney and ureter, unspecified; Z96.659 Presence of unspecified artificial knee joint; Z87.891 Personal history of nicotine dependence; Z87.442 Personal history of urinary calculi

== ENCOUNTER → 2017-07-05 | Outpatient (CLI) | payer BC ==
[~2017-07-05] MED LIST changes: -CEFAZOLIN 3000MG IV PUSH 15 ML IV SCH; +CIPR-255 PO; -CIPROFLOXACIN / D5W 400 MG IV SCH; -LACTATED RINGER'S 1000ML 1,000 ML IV SCH; +OXYC7.5T65 PO
== END | disposition home or self-care (01) ==
LOC: C.LABSPEC 17:03
PROVIDERS: ATTEND Urology
DX: R31.0 Gross hematuria (principal); N40.0 Benign prostatic hyperplasia without lower urinary tract symptoms; R33.9 Retention of urine, unspecified

== ENCOUNTER → 2017-07-11 | Outpatient (CLI) | payer BC | END | disposition home or self-care (01) | LOC: C.RDSM 17:42 | PROVIDERS: ATTEND Physical Medicine & Rehabilitation Sports Medicine | DX: M25.569 Pain in unspecified knee (principal); M17.4 Other bilateral secondary osteoarthritis of knee; Z96.653 Presence of artificial knee joint, bilateral ==

== ENCOUNTER → 2017-08-24 | Outpatient (CLI) | payer BC | END | disposition home or self-care (01) | LOC: C.LABSPEC 10:23 | PROVIDERS: ATTEND Urology | DX: R31.0 Gross hematuria (principal); N40.0 Benign prostatic hyperplasia without lower urinary tract symptoms; R35.1 Nocturia; R30.0 Dysuria; R33.9 Retention of urine, unspecified ==